=== PATIENT | female | born 1990 | race Caucasian/White ===

== ENCOUNTER 2020-11-20 11:07 | Emergency (ER) | payer SELFPAY ==
[2020-11-20 11:28] VITALS: BP 122/71; PULSE 97; TEMP 98.6; BMI 24.5
== END 2020-11-20 13:40 | disposition home or self-care (01) ==
LOC: JER 11:07
DX: R50.9 Fever, unspecified (principal); M79.10 Myalgia, unspecified site; Z11.59 Encounter for screening for other viral diseases
CPT/HCPCS: 99283-25; C9803; U0003